=== PATIENT | male | born 1970 | race Caucasian/White ===

== ENCOUNTER 2021-11-07 03:05 | Emergency (ER) | payer BC ==
[2021-11-07] MEDS ORDERED: Diazepam 5 MG Tab PO ONE (03:33)
[2021-11-07] MEDS ORDERED: Ketorolac 30 MG/ML SDV IM ONE (03:33)
--- NOTE | 2021-11-07 03:39 | EDM.PDOC ---
ED HPI GENERAL MEDICAL PROBLEM - General Chief Complaint: Back Pain or Injury Stated Complaint: Back pain Time Seen by Provider: 11/07/21 03:30 Source of Information: Reports: Patient - History of Present Illness INITIAL COMMENTS - FREE TEXT/NARRATIVE: Abraham is a 51 y/o male who comes to the ER with back pain right in the middle of his back. Denies any specific injury, but in his midback region it feels "like a knife" and he cannot sleep due to the pain. Has not used nay OTC meds. Unsure of any injury that caused the pain. Treatments [employer]: Reports: Other (see below) Other Treatments [employer]: Excedrin 2 tabs at 0230 Right mid thoracic Pain Score (Numeric/FACES): 8 - Related Data Allergies Allergy/AdvReac Type Severity Reaction Status Date / Time No Known Allergies Allergy Verified 11/07/21 03:31 Home Meds: Home Meds Albuterol/Ipratropium [Combivent Respimat] 4 gm IH Q6H PRN 11/07/21 [History] Aspirin 81 mg PO DAILY 11/07/21 [History] Cyclobenzaprine [Flexeril] 10 mg PO TID PRN #20 tab 11/07/21 [Rx] Empagliflozin [Jardiance] 10 mg PO DAILY 11/07/21 [History] Lisinopril/Hydrochlorothiazide [Zestoretic 10-12.5 mg Tablet] 1 tab PO DAILY 11/07/21 [History] Semaglutide [Rybelsus] 7 mg PO DAILY 11/07/21 [History] atorvaSTATin Calcium [Lipitor] 40 mg PO BEDTIME 11/07/21 [History] metFORMIN HCl [Metformin HCl] 1,000 mg PO BID 11/07/21 [History] Review of Systems - Review of Systems Review Of Systems: See Below Constitutional: Reports: No Symptoms Eyes: Reports: No Symptoms Ears: Reports: No Symptoms Nose: Reports: No Symptoms Mouth/Throat: Reports: No Symptoms Respiratory: Reports: No Symptoms Cardiovascular: Reports: No Symptoms GI/Abdominal: Reports: No Symptoms Genitourinary: Reports: No Symptoms Musculoskeletal: Reports: Back Pain Skin: Reports: No Symptoms Neurological: Reports: No Symptoms Psychiatric: Reports: No Symptoms ED EXAM, GENERAL - Physical Exam Exam: See Below Exam Limited By: No Limitations General Appearance: Alert, WD/WN, No Apparent Distress (Adult male) Ears: Normal External Exam, Hearing Grossly Normal Ear Exam: Left Ear: Other Nose: Normal Inspection Throat/Mouth: Normal Inspection, Normal Lips, Normal Voice Head: Atraumatic, Normocephalic Neck: Supple Respiratory/Chest: No Respiratory Distress, Lungs Clear, Chest Non-Tender Cardiovascular: Normal Peripheral Pulses, Regular Rate, Rhythm, No Murmur GI/Abdominal: Normal Bowel Sounds, Soft, No Distention (Male) Exam: Deferred Rectal (Males) Exam: Deferred Back Exam: Normal Inspection, Muscle Spasm (muscle tighness palpable in the mid thoracic region, no tenderness over the spine, sacro-iliac joint or sciatic notch.) Extremities: Normal Inspection, Normal Range of Motion, Normal Capillary Refill Neurological: Alert, Oriented, CN II-XII Intact, No Motor/Sensory Deficits Course - Vital Signs Text/Narrative:: The patient was seen by the [employer]. He was given Toradol 30mg IM and Valium 10mg po for pain. Patient felt better a short wile later. Written instructions were given and he left the ER in stable condition. Last Recorded V/S: Last Vital Signs Temp 36.1 C 11/07/21 03:05 Pulse 92 11/07/21 03:05 Resp 16 11/07/21 03:05 BP 140/86 11/07/21 03:05 Pulse Ox 95 11/07/21 03:05 - Orders/Labs/Meds Meds: Medications Discontinued Medications Generic Name Dose Route Start Last Admin Trade Name Freq PRN Reason Stop Dose Admin Diazepam 10 mg 11/07/21 03:33 11/07/21 03:46 Diazepam 5 Mg Tab PO 11/07/21 03:34 10 mg ONETIME ONE Administration Ketorolac Tromethamine 30 mg 11/07/21 03:33 11/07/21 03:45 Ketorolac 30 Mg/Ml Sdv IM 11/07/21 03:34 30 mg ONETIME ONE Administration Departure - Departure Time of Disposition: 04:00 Disposition: Home, Self-Care 01 Condition: Good Clinical Impression: Back pain Qualifiers: Back pain location: thoracic back pain Chronicity: acute Back pain laterality: midline Qualified Code(s): M54.6 - Pain in thoracic spine - Discharge Information Prescriptions: Cyclobenzaprine [Flexeril] 10 mg PO TID PRN #20 tab PRN Reason: Spasms Instructions: Acute Back Pain, Adult Forms: ED Department Discharge Additional Instructions: -Ibuprofen 200mg 3 tabs orally every 6 hours x 5-7 days then every 6-8 hours as needed (Use over the counter meds) -Cyclobenzaprine 10 mg orally every 8 hours as needed for muscle spasms #20 (Rx) -Acetaminophen 1000mg oral every 6 hours -Ice or heat applied to the area as needed -Rest, Increase activity as able -Follow up with your Primary Care Provider to arrange further diagnostic testing if the pain persists -Return to the ER if any other concerns Sepsis Event Note (ED) - Evaluation Sepsis Screening Result: No Definite Risk - Focused Exam Vital Signs: Vital Signs Temp Pulse Resp BP Pulse Ox 11/07/21 03:05 36.1 C 92 16 140/86 95 - Problem List & Annotations (1) Back pain SNOMED Code(s): 335429060 Code(s): M54.9 - DORSALGIA, UNSPECIFIED Status: Acute Annotation/Comment:: Pain improved with Toradol/Valium. Qualifiers: Back pain location: thoracic back pain Chronicity: acute Back pain laterality: midline Qualified Code(s): M54.6 - Pain in thoracic spine - Problem List Review Problem List Initiated/Reviewed/Updated: Yes - Assessment/Plan Plan: As above
== END 2021-11-07 04:30 | disposition home or self-care (01) ==
LOC: VM.ED 03:05
DX: M54.6 Pain in thoracic spine (principal)
CPT/HCPCS: 96372; 99283; A9270-GY; J1885

== ENCOUNTER 2023-01-04 06:30 | Day surgery (SDC) | payer BC ==
[2023-01-04] MEDS ORDERED: Sodium Chloride 0.9% 10 ML Syringe FLUSH PRN (07:00)
[2023-01-04] MEDS ORDERED: Lactated Ringers 1,000 ML IV SCH (07:00)
[2023-01-04] MEDS ORDERED: fentaNYL 100 MCG/2 ML SDV ONE (07:31)
[2023-01-04] MEDS ORDERED: Propofol 200 MG/20 ML SDV ONE ×2 (07:31→08:00)
== END 2023-01-04 09:52 | disposition home or self-care (01) ==
LOC: VM.SDS 06:30 → MERGE 10:00
PROVIDERS: ATTEND Student in an Organized Health Care Education/Training Program
DX: Z12.11 Encounter for screening for malignant neoplasm of colon (principal); D12.3 Benign neoplasm of transverse colon; E11.9 Type 2 diabetes mellitus without complications; E66.9 Obesity, unspecified; Z68.41 Body mass index [BMI] 40.0-44.9, adult; Z79.84 Long term (current) use of oral hypoglycemic drugs; Z79.899 Other long term (current) drug therapy; Z87.891 Personal history of nicotine dependence
CPT/HCPCS: 00812; 82947; J2704; J3010; J7120